=== PATIENT | female | born 1960 | race Caucasian/White ===

== ENCOUNTER 2023-06-05 12:49 | Outpatient (OUT) | payer BC, SELFPAY ==
[2023-06-05 13:00] LABS: Basophils Percent Auto 0.3 % (0.2-2.0); Eosinophils Percent Auto 0.3 % (0.9-7.0); Hematocrit 42.1 % (36.0-48.0); Hemoglobin 13.5 g/dL (12.0-16.0); Immature Granulocytes Abs Auto 0.01 10^3/uL (0.00-0.03); Immature Granulocytes Pct Auto 0.2 % (0.0-0.5); Lymphocytes Absolute Auto 2.2 10^3/uL (1.2-3.8); Lymphocytes Percent Auto 35.7 % (20.5-60.0); Mean Corpuscular HGB Conc 32.1 g/dL (29.9-35.2); Mean Corpuscular Hemoglobin 30.7 pg (26.7-34.0); Mean Corpuscular Volume 95.7 fL (81.0-99.0); Mean Platelet Volume 10.1 fL (9.5-13.5); Monocytes Absolute Auto 0.3 10^3/uL (0.3-0.8); Monocytes Percent Auto 5.1 % (1.7-12.0); Neutrophils Absolute Auto 3.5 10^3/uL (1.4-6.5); Neutrophils Percent Auto 58.4 % (43.0-75.0); Platelet Count 209 10^3/uL (150-450); Red Cell Distribution Width 13.6 % (11.0-15.0); White Blood Count 6.1 10^3/uL (4.0-11.0)
[2023-06-05 13:37] LABS: Alanine Aminotransferase 37 U/L (14-59); Albumin Level 3.6 g/dL (3.4-5.0); Alkaline Phosphatase 91 U/L (46-116); Anion Gap 12.5; Aspartate Amino Transferase 16 U/L (15-37); BUN Creatinine Ratio 13.2; Bilirubin Total 0.4 mg/dL (0.2-1.0); Calcium 8.7 mg/dL (8.5-10.1); Carbon Dioxide 27.2 mmol/L (21.0-32.0); Chloride 104 mmol/L (98-107); Estimated GFR (African America >60 (>=60); Estimated GFR (Non-African Ame >60 (>=60); Globulin 3.5 g/dL; Glucose 96 mg/dL (74-106); Potassium 3.7 mmol/L (3.5-5.1); Sodium 140 mmol/L (136-145); Total Protein 7.1 g/dL (6.4-8.2)
[2023-06-05] MEDS: ALBUTEROL SULFATE 2.5 MG/3 ML VIAL NEB IH (15:18)
--- NOTE | 2023-06-05 15:23 | RT_ITS ---
[facility] Test Date: 2023-06-05 Pat Name: Joya Harrington Department: Room: - Gender: Female Draw Tender: Michael Arreola RRT : 1960 Requested By: [id number] Order Number: [id number] Reading MD: Yan Lawler Interpretive Statements Pulmonary function testing was completed according to ATS criteria. Findings were considered accurate and reproducible, with exception of DLCO which did not meet ATS standards. Both pre- and post-bronchodilator values utilized for spirometry. Due to software limitations, no prior studies (if performed previously) are currently available for comparison. Spirometry (based on pre-bronchodilator values): -FEV1/FVC: Reduced @ 63% -FEV1: Moderately reduced @ 79% -FVC: Normal @ 97% -There is no significant bronchodilator response. Lung volumes by plethysmography (based on pre-bronchodilator values): -RV: Normal @ 112% -TLC: Normal @ 102% Diffusion capacity: -DLCO: Moderately-severe reduction @ 53% when corrected for Hb 13.5g/dL Flow-volume loop: -Moderate obstructive pattern with mild flattening of the inspiratory limb Impressions: -Spirometry suggests moderate obstruction. There is no bronchodilator response. Lung volumes are normal. There is a moderately reduced diffusion capacity. Overall study is compatible with emphysema/COPD. Unclear clinical significance is of flattened inspiratory flow-volume loop - may be anomalous or suggestive of a variable extrathoracic obstruction. Clinical correlation required. Electronically Signed On 06-09-2023 15:41:46 EST by Yan Lawler
== END 2023-06-05 12:50 | disposition home or self-care (01) ==
LOC: CARD 12:49
PROVIDERS: PCP Internal Medicine; Visit Provider Internal Medicine
DX: J43.9 Emphysema, unspecified (principal); I10 Essential (primary) hypertension
CPT/HCPCS: 36415; 80053; 85025; 94060; 94726; 94729; 99407